=== PATIENT | male | born 1980 | race African-American/Black ===

== ENCOUNTER → 2024-11-09 11:55 | Outpatient (CLI) | payer BC, SELFPAY ==
--- NOTE | ~2024-11-09 | XR_ITS ---
EXAM/PROCEDURE: XR chest 2V - 11/09/2024 12:15 CDT HISTORY: 44 years old Male with TOBACCO USE 20 YRS 1 PPD TECHNIQUE: Two view(s) of the chest. COMPARISON: None available. FINDINGS: LUNGS/ PLEURA: No focal consolidation. No appreciable pneumothorax or large pleural effusion. HEART/ MEDIASTINUM: Heart appears normal in size. BONES: No acute osseous abnormality. OTHER: Visualized upper abdomen is unremarkable. IMPRESSION: No acute process. Reviewed, dictated and finalized at location A. IMPRESSION: No acute process.
== END ==
PROVIDERS: PCP Emergency Medicine; Visit Provider Emergency Medicine
DX: Z87.891 Personal history of nicotine dependence (principal)
CPT/HCPCS: 71046